=== PATIENT | male | born 1970 | race Caucasian/White ===

== ENCOUNTER 2020-06-14 04:21 | Emergency (ER) | payer MEDICAID ==
[2020-06-14] MEDS ORDERED: Ondansetron 4 MG/2 ML SDV IVPUSH ONE (04:53)
[2020-06-14] MEDS ORDERED: Ketorolac 30 MG/ML SDV IVPUSH ONE (04:53)
--- NOTE | 2020-06-14 05:01 | EDM.PDOC ---
ED HPI GENERAL MEDICAL PROBLEM - General Chief Complaint: Abdominal Pain Stated Complaint: ABD PAIN Time Seen by Provider: 06/14/20 04:52 Source of Information: Reports: Patient History Limitations: Reports: No Limitations - History of Present Illness INITIAL COMMENTS - FREE TEXT/NARRATIVE: Rajinder is a 49-year-old male presenting to the ED with acute onset of right lower quadrant abdominal pain since 2000 hrs. last evening. The pain has been gradually getting worse since the onset. Patient denies any nausea or vomiting, diarrhea or constipation. He has had diminished appetite. He has not had any fever, but has experienced chills. He denies any headache, sore throat, difficulty with swallowing, cough or shortness of breath, chest pain, or back pain. His abdominal pain is in the right lower quadrant radiating through to the back. He has a history of a cholecystectomy about 17 years ago but still has his appendix. Abdominal Pain Score (Numeric/FACES): 10 - Related Data Allergies Allergy/AdvReac Type Severity Reaction Status Date / Time No Known Allergies Allergy Verified 06/14/20 04:36 Home Meds: Home Meds Sertraline HCl [Zoloft] 100 mg PO DAILY 06/14/20 [History] traZODone 1 tab PO ASDIRECTED PRN 06/14/20 [History] Past Medical History HEENT History: Reports: Impaired Vision Psychiatric History: Reports: Anxiety, Depression - Infectious Disease History Infectious Disease History: Reports: Chicken Pox - Past Surgical History HEENT Surgical History: Reports: Oral Surgery GI Surgical History: Reports: Cholecystectomy Social & Family History - Tobacco Use Tobacco Use Status *Q: Never Tobacco User - Caffeine Use Caffeine Use: Reports: Coffee, Soda, Tea - Recreational Drug Use Recreational Drug Use: No ED ROS GENERAL - Review of Systems Review Of Systems: See Below Constitutional: Reports: Chills, Malaise, Decreased Appetite HEENT: Reports: No Symptoms Respiratory: Reports: No Symptoms Cardiovascular: Reports: No Symptoms Endocrine: Reports: No Symptoms GI/Abdominal: Reports: Abdominal Pain (Right lower quadrant abdominal pain), Decreased Appetite : Reports: No Symptoms Musculoskeletal: Reports: No Symptoms Skin: Reports: No Symptoms Neurological: Reports: No Symptoms Psychiatric: Reports: No Symptoms Hematologic/Lymphatic: Reports: No Symptoms Immunologic: Reports: No Symptoms ED EXAM, GI/ABD - Physical Exam Exam: See Below Exam Limited By: No Limitations General Appearance: Alert, Anxious, Moderate Distress Eyes: Bilateral: EOMI Throat/Mouth: Normal Inspection, Normal Oropharynx, Normal Voice, No Airway Compromise Head: Atraumatic, Normocephalic Neck: Normal Inspection Respiratory/Chest: No Respiratory Distress, Lungs Clear, Normal Breath Sounds Cardiovascular: Normal Peripheral Pulses, Regular Rate, Rhythm, No Murmur GI/Abdominal Exam: Guarding (Right lower quadrant), Rebound, Abnormal Bowel Sounds (Diminished bowel sounds). No: Rigid Back Exam: Normal Inspection Extremities: Normal Inspection, Normal Range of Motion Neurological: Alert, Oriented, Normal Cognition, No Motor/Sensory Deficits Psychiatric: Normal Affect, Anxious Skin Exam: Warm, Dry Lymphatic: No Adenopathy Course - Vital Signs Last Recorded V/S: Last Vital Signs Temp 37.8 C 06/14/20 04:34 Pulse 98 06/14/20 04:34 Resp 18 06/14/20 04:34 BP 138/79 06/14/20 04:34 Pulse Ox 98 06/14/20 04:34 - Orders/Labs/Meds Orders: Active Orders 24 hr Category Date Time Status Abdomen Pelvis w Cont [CT] Stat Exams 06/14/20 04:53 Ordered COVID-19/FLU A+B/RSV [MOLEC] Stat Lab 06/14/20 04:57 Ordered Piperacillin/Tazobactam [Zosyn] 4.5 gm Med 06/14/20 05:45 Ordered Sodium Chloride 0.9% [Normal Saline] 100 ml IV ONETIME Sodium Chloride 0.9% [Saline Flush] Med 06/14/20 04:53 Active 10 ml FLUSH ASDIRECTED PRN Isolation [COMM] Stat Oth 06/14/20 04:57 Ordered Saline Lock Insert [OM.PC] Routine Oth 06/14/20 04:53 Ordered Medication Orders Piperacillin Sod/Tazobactam (Sod 4.5 gm/ Sodium Chloride) 100 mls @ 100 mls/hr IV ONETIME ONE Stop: 06/14/20 06:44 Sodium Chloride (Sodium Chloride 0.9% 10 Ml Syringe) 10 ml FLUSH ASDIRECTED PRN PRN Reason: Keep Vein Open Last Admin: 06/14/20 05:11 Dose: 10 ml Documented by: LAISHA Labs: Laboratory Tests 06/14/20 06/14/20 Range/Units 05:00 05:00 WBC 10.6 (4.5-11.0) K/uL RBC 5.32 (4.30-5.90) M/uL Hgb 14.4 (12.0-15.0) g/dL Hct 43.3 (40.0-54.0) % MCV 81 (80-98) fL MCH 27 (27-31) pg MCHC 33 (32-36) % Plt Count 203 (150-400) K/uL Neut % (Auto) 77 H (36-66) % Lymph % (Auto) 15 L (24-44) % Lyon % (Auto) 6 (2-6) % Eos % (Auto) 2 (2-4) % Baso % (Auto) 0 (0-1) % Sodium 141 (140-148) mmol/L Potassium 3.9 (3.6-5.2) mmol/L Chloride 101 (100-108) mmol/L Carbon Dioxide 29 (21-32) mmol/L Anion Gap 11.5 (5.0-14.0) mmol/L BUN 15 (7-18) mg/dL Creatinine 1.2 (0.8-1.3) mg/dL Est Cr Clr Drug Dosing 72.83 mL/min Estimated GFR (MDRD) > 60 (>60) Glucose 100 (74-106) mg/dL Calcium 9.1 (8.5-10.1) mg/dL Total Bilirubin 1.3 H (0.2-1.0) mg/dL AST 20 (15-37) U/L ALT 35 (12-78) U/L Alkaline Phosphatase 82 (46-116) U/L C-Reactive Protein 0.32 H (0.0-0.3) mg/dL Total Protein 7.7 (6.4-8.2) g/dL Albumin 3.6 (3.4-5.0) g/dL Globulin 4.1 H (2.3-3.5) g/dL Albumin/Globulin Ratio 0.9 L (1.2-2.2) Meds: Medications Generic Name Dose Route Start Last Admin Trade Name Freq PRN Reason Stop Dose Admin Piperacillin Sod/Tazobactam 100 mls @ 100 mls/hr 06/14/20 05:45 Sod 4.5 gm/ Sodium Chloride IV 06/14/20 06:44 ONETIME ONE Sodium Chloride 10 ml 06/14/20 04:53 06/14/20 05:11 Sodium Chloride 0.9% 10 Ml Syringe FLUSH 10 ml ASDIRECTED PRN Administration Keep Vein Open Discontinued Medications Generic Name Dose Route Start Last Admin Trade Name Abel PRN Reason Stop Dose Admin Hydromorphone HCl 1 mg 06/14/20 05:40 Hydromorphone 1 Mg/Ml Syringe IVPUSH 06/14/20 05:41 ONETIME ONE Sodium Chloride 100 mls @ 4 mls/sec 06/14/20 05:09 06/14/20 05:28 Normal Saline IV 06/14/20 05:10 4 mls/sec ASDIRECTED STA Administration Iopamidol 150 ml 06/14/20 05:09 06/14/20 05:28 Iopamidol 612 Mg/Ml 150 Ml Bottle IV 06/14/20 05:10 150 ml . DIRECTED STA Administration Ketorolac Tromethamine 30 mg 06/14/20 04:53 06/14/20 05:08 Ketorolac 30 Mg/Ml Sdv IVPUSH 06/14/20 04:54 30 mg ONETIME ONE Administration Ondansetron HCl 4 mg 06/14/20 04:53 06/14/20 05:09 Ondansetron 4 Mg/2 Ml Sdv IVPUSH 06/14/20 04:54 4 mg ONETIME ONE Administration - Radiology Interpretation Free Text/Narrative:: I reviewed the CT of the abdomen and pelvis with IV contrast demonstrating acute appendicitis. There is a large amount of stranding around a generous appendix with stranding extending down into the pelvis. Official report is pending. - Re-Assessments/Exams Free Text/Narrative Re-Assessment/Exam: 06/14/20 05:47 the Anna has an acute appendicitis based on my review of the CT. He has appendiceal enlargement, thickening, with periappendiceal stranding extending all the way down into the pelvis. I do not see evidence for significant abscess or phlegmon. Will initiate antibiotics with Zosyn 4.[address] Craig is already beyond capacity for the day for surgeries, I will discussed the case with general surgery at [facility] in [place]. The patient does have a mild leukocytosis at 10.6 with 77% neutrophils. 06/14/20 06:01 I discussed the case with Dr. Walton from [facility] who accepts the patient in transfer for further care of the acute appendicitis. We initiated antibiotics with Zosyn. Patient is also had Dilaudid 1 mg for pain. He last ate food before sunset yesterday which was greater than 8 hours ago. 06/14/20 06:03 I reviewed the completed labs. The patient is Covid negative. His comprehensive metabolic panel is unremarkable except for a bilirubin of 1.3. His CRP is mildly elevated 0.32. Departure - Departure Time of Disposition: 06:00 Disposition: DC/Tfer to [facility] 02 Clinical Impression: Acute appendicitis with generalized peritonitis Qualifiers: Appendicitis gangrene presence: unspecified whether gangrene present Appendicitis perforation presence: unspecified whether perforation present Appendicitis abscess presence: without abscess Qualified Code(s): K35.20 - Acute appendicitis with generalized peritonitis, without abscess - Discharge Information Referrals: PCP,None [Primary Care Provider] - Forms: ED Department Discharge Sepsis Event Note (ED) - Evaluation Sepsis Screening Result: No Definite Risk - Focused Exam Vital Signs: Vital Signs Temp Pulse Resp BP Pulse Ox 06/14/20 04:34 37.8 C 98 18 138/79 98 - Problem List & Annotations (1) Acute appendicitis with generalized peritonitis SNOMED Code(s): 18001043 Code(s): K35.20 - ACUTE APPENDICITIS WITH GEN PERITONITIS, WITHOUT ABSCESS Status: Acute Priority: High Current Visit: Yes Qualifiers: Appendicitis gangrene presence: unspecified whether gangrene present Appendicitis perforation presence: unspecified whether perforation present Appendicitis abscess presence: without abscess Qualified Code(s): K35.20 - Acute appendicitis with generalized peritonitis, without abscess - Problem List Review Problem List Initiated/Reviewed/Updated: Yes - My Orders Last 24 Hours: My Active Orders 06/14/20 04:53 Abdomen Pelvis w Cont [CT] Stat Sodium Chloride 0.9% [Saline Flush] 10 ml FLUSH ASDIRECTED PRN Saline Lock Insert [OM.PC] Routine 06/14/20 04:57 COVID-19/FLU A+B/RSV [MOLEC] Stat Isolation [COMM] Stat 06/14/20 05:45 Piperacillin/Tazobactam [Zosyn] 4.5 gm Sodium Chloride 0.9% [Normal Saline] 100 ml IV ONETIME - Assessment/Plan Last 24 Hours: My Active Orders 06/14/20 04:53 Abdomen Pelvis w Cont [CT] Stat Sodium Chloride 0.9% [Saline Flush] 10 ml FLUSH ASDIRECTED PRN Saline Lock Insert [OM.PC] Routine 06/14/20 04:57 COVID-19/FLU A+B/RSV [MOLEC] Stat Isolation [COMM] Stat 06/14/20 05:45 Piperacillin/Tazobactam [Zosyn] 4.5 gm Sodium Chloride 0.9% [Normal Saline] 100 ml IV ONETIME
[2020-06-14] MEDS ORDERED: Iopamidol 612 MG/ML 150 ML Bottle IV STA (05:09)
[2020-06-14] MEDS ORDERED: Sodium Chloride 0.9% 100 ML IV STA (05:09)
[2020-06-14] MEDS: Sodium Chloride 0.9% 10 ML Syringe FLUSH PRN ×2 (05:11→05:48)
[2020-06-14] MEDS ORDERED: HYDROmorphone 1 MG/ML Syringe IVPUSH ONE (05:40)
[2020-06-14 05:43] LABS: CORONAVIRUS COVID-19 NAA NEGATIVE (NEGATIVE)
[2020-06-14] MEDS ORDERED: Piperacillin/Tazobactam 4.5 GM in Sodium Chloride 0.9% 100 ML IV ONE (05:45)
--- NOTE | 2020-06-14 06:18 | CRLCT ---
Indication: Right lower quadrant pain Technique: Volumetric multidetector CT images of the abdomen and pelvis were obtained after the administration of intravenous contrast. 150 cc Isovue-300 low osmolar intravenous contrast Comparison: None available. Findings: The lung bases are clear. The liver is normal in attenuation without intrahepatic biliary ductal dilatation. The portal vein is patent. The gallbladder surgically absent. There is no significant common biliary ductal dilatation or abrupt cut off. The spleen is mildly enlarged measuring up to 15 centimeters. The stomach and duodenum are grossly unremarkable. The pancreas is normal in enhancement without significant atrophy. The adrenal glands are unremarkable. The kidneys demonstrate preserved corticomedullary differentiation without evidence of obstructive uropathy. There is a [id number] amount of stool seen throughout the colon with minimal distal colonic diverticulosis without evidence of diverticulitis. There is a dilated appendix with moderate periappendiceal inflammatory change measuring up to 1.4 centimeters in greatest dimension. There are somewhat enlarged retroperitoneal lymph nodes. The aorta is nonaneurysmal. There is no significant atherosclerotic disease appreciated. The solid pelvic viscera are grossly unremarkable. There is no free fluid or free air. There is mild diastasis of the rectus musculature with a small fat containing umbilical hernia. The lumbar vertebral body heights are grossly maintained with minimal retrolisthesis of L4 on L5. There is mild to moderate degenerative disc disease. Impression: Demonstration of a dilated appendix with moderate periappendiceal inflammatory changes commensurate with developing uncomplicated appendicitis. Mild hepatosplenomegaly. Please note that all CT scans at this facility use dose modulation, iterative reconstruction, and/or weight-based dosing when appropriate to reduce radiation dose to as low as reasonably achievable. Dictated by George Crump MD @ 06/14/2020 6:17:[address] George Crump @ Jun 14 2020 6:17AM
[2020-06-14] MEDS ORDERED: HYDROmorphone 0.5 MG/0.5 ML Syringe IVPUSH ONE (06:43)
== END 2020-06-14 07:19 ==
LOC: JP.ED 04:21
DX: K35.20 Acute appendicitis with generalized peritonitis, without abscess (principal); Z90.49 Acquired absence of other specified parts of digestive tract; Z20.822 Contact with and (suspected) exposure to COVID-19
CPT/HCPCS: 0241U; 36415; 74177; 80053; 85025; 86140; 96365; 96375; 96376; 99285; J1170; J1885; J2405; J2543; Q9967